=== PATIENT | female | born 1985 | race Caucasian/White ===

== ENCOUNTER 2022-04-27 12:33 | Emergency (ER) | payer BC ==
[2022-04-27 13:32] LABS: HEMOGLOBIN 13.6 gm/dl (12.3-15.3); RED BLOOD COUNT 4.86 M/UL (4.00-5.10); WHITE BLOOD COUNT 10.6 K/UL (4.5-11.0)
[2022-04-27 13:46] LABS: BUN/CREATININE RATIO 9 (0-10)
== END 2022-04-27 17:00 | disposition home or self-care (01) ==
LOC: ER1 12:33
PROVIDERS: Emergency Medicine
DX: M71.22 Synovial cyst of popliteal space [Baker], left knee (principal); I10 Essential (primary) hypertension; F17.200 Nicotine dependence, unspecified, uncomplicated
CPT/HCPCS: 73564; 80053; 84550; 85025; 85652; 86140; 93971; 99284